=== PATIENT | female | born 1975 | race American Indian/Alaskan Native ===

== ENCOUNTER 2019-12-11 15:49 | Emergency (ER) | payer SELFPAY ==
[2019-12-11 15:59] VITALS: BP 125/77
--- NOTE | 2019-12-11 16:00 | Emergency Department Report ---
Blank Doc - Documentation Documentation: 43-year-old female that presents with chest pain and cough. This initial assessment/diagnostic orders/clinical plan/treatment(s) is/are subject to change based on patient's health status, clinical progression and re- assessment by fellow clinical providers in the ED. Further treatment and workup at subsequent clinical providers discretion. Patient/guardians urged not to elope from the ED as their condition may be serious if not clinically assessed and managed. Initial orders include: 1- Patient sent to [facility] for further evaluation and treatment 2- CXR 3- EKG
--- NOTE | 2019-12-11 16:59 | XRay Report ---
CHEST 2 VIEWS INDICATION / CLINICAL INFORMATION: cp. COMPARISON: None available. FINDINGS: SUPPORT DEVICES: None. HEART / MEDIASTINUM: No significant abnormality. LUNGS / PLEURA: No significant pulmonary or pleural abnormality. No pneumothorax. ADDITIONAL FINDINGS: No significant additional findings. IMPRESSION: 1. No acute findings. Signer Name: Arianna Seth MD Signed: 12/11/2019 4:54 PM Workstation Name: [id number]
--- NOTE | 2019-12-11 20:08 | Emergency Department Report ---
Minor Respiratory - HPI Chief Complaint: Upper Respiratory Infection Stated Complaint: CHEST PAIN DRY COUGH Time Seen by Provider: 12/11/19 15:58 Pain Location: Chest Severity: mild Minor Respiratory: Yes Able to Tolerate Fluids, Yes Cough, Yes Chest Pain, No Rhinorrhea, No Sore Throat, No Ear Pain, No Sick Contacts (Unsure), No Hemoptysis, No Shortness of Breath, No Fever Other History: This is a 43-year-old female with no prior medical history who presents the ED complaining of intermittent cough for a while now. Patient also states that she started experiencing mid localized chest pain that started last night. She describes pain as a mild pressure type feeling but states she was worried because she has never felt that before. Patient states that her cough ing is dry and intermittent. 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 Patient denies any fever, nausea vomiting diarrhea shortness of breath or any other symptoms. ED Review of Systems ROS: Stated complaint: CHEST PAIN DRY COUGH Other details as noted in HPI Comment: All other systems reviewed and negative ED Past Medical Hx - Past Medical History Previous Medical History?: No - Surgical History Additional Surgical History: c section. broken jaw - Social History Smoking Status: Never Smoker Substance Use Type: None Minor Respiratory Exam - Exam General: Vital signs noted. No distress. Alert and acting appropriately. HEENT: Yes Moist Mucous Membranes, No Pharyngeal Erythema, No Pharyngeal Exudates, No Rhinorrhea, No Conjuctival Injection, No Frontal Tenderness, No Maxillary Tenderness Ear: Neither TM Bulge, Neither TM Erythema, Neither EAC Pain, Neither EAC Discharge Neck: Yes Supple, No Adenopathy Lungs: Yes Good Air Exchange, No Wheezes, No Ronchi, No Stridor, No Cough, No Labored Respirations, No Retractions, No Use of Accessory Muscles, No Other Abnormal Lung Sounds Heart: Yes Regular, No Murmur Abdomen: Yes Normal Bowel Sounds, No Tenderness, No Peritoneal Signs Skin: No Rash, No Edema Neurologic: Alert and oriented, no deficits. Musculoskeletal: Unremarkable. ED Course Vital Signs 12/11/19 12/11/19 15:57 16:00 Temperature 99.0 F 99.0 F Pulse Rate 75 73 Respiratory 20 20 Rate Blood Pressure 125/77 Blood Pressure 125/77 [Right] O2 Sat by Pulse 100 100 Oximetry ED Medical Decision Making - EKG Data EKG shows normal: sinus rhythm Rate: normal - EKG Data Interpretation: normal EKG - Radiology Data Radiology results: report reviewed, image reviewed COMPARISON: None available. FINDINGS: SUPPORT DEVICES: None. HEART / MEDIASTINUM: No significant abnormality. LUNGS / PLEURA: No significant pulmonary or pleural abnormality. No pneumothorax. ADDITIONAL FINDINGS: No significant additional findings. IMPRESSION: 1. No acute findings. Signer Name: Arianna Seth MD Signed: 12/11/2019 4:54 PM Workstation Name: [email or web address] Transcribed By: [facility] Dictated By: Arianna Seth MD Electronically Authenticated By: Arianna Seth MD Signed Date/Time: 12/11/19 6004 - Medical Decision Making This 43-year-old female who presents the ED with bronchitis with mild chest pain. EKG was normal. Chest x-ray shows no acute findings discussed all results with patient. Patient vital signs are stable. She has no prior medical conditions. I discussed with patient if she feels like she may have the cold with 19 virus to stay at home and quarantine for 2 weeks. Discussed with patient to monitor her symptoms take Tylenol if she has any fever and for pain. Discussed with patient to wear masks when she is at work to protect herself from others and others from her. Patient is in no acute or respiratory distress. She understands instructions Health department information given to patient. Discussed with patient if she worsening symptoms she may return to the ED immediately. I discussed the contact health department for testing or our primary care physician for localized testing. Critical care attestation.: If time is entered above; I have spent that time in minutes in the direct care of this critically ill patient, excluding procedure time. ED Disposition Clinical Impression: Bronchitis Disposition: [id number] TO HOME OR SELFCARE Is pt being admited?: No Does the pt Need Aspirin: No Condition: Stable Instructions: Upper Respiratory Infection (ED), Chronic Bronchitis (ED), Viral Syndrome (ED) Additional Instructions: Make sure to follow up with the primary care physician as discussed. Take all your medications as you've been prescribed. If you have any worsening symptoms or develop new symptoms please return to ED immediately. Referrals: PRIMARY CARE, [Primary Care Provider] - 3-5 Days [facility] [Provider Group] - 3-5 Days [facility] [Outside] - 3-5 Days Forms: Work/School Release Form(ED) Time of Disposition: 20:11
== END 2019-12-11 20:15 | disposition home or self-care (01) ==
LOC: ED 15:49
DX: J40 Bronchitis, not specified as acute or chronic (principal)
CPT/HCPCS: 71046; 93005; 93010